=== PATIENT | male | born 1995 | race Caucasian/White ===

== ENCOUNTER 2021-03-29 11:51 | Emergency (ER) | payer MEDICAID ==
[~2021-03-29] VITALS: Ht 182.9 cm; Wt 79.0 kg
[2021-03-29] MEDS ORDERED: CLINDAMYCIN PHOSPHATE 600MG/4ML VIAL IM ONE (13:45)
[2021-03-29] MEDS ORDERED: CLINDAMYCIN 600MG PREMIX 50 ML IV NR (13:45)
[2021-03-29 15:01] LABS: BASOPHILS % 0.5 % (0.0-2.0); HEMATOCRIT. 40.7 % (42.0-52.0); HEMOGLOBIN. 14.1 g/dL (14.0-18.0); LYMPHOCYTES % 28.3 % (20.0-50.0); MEAN CORPUSCULAR HEMOGLOBIN 31.6 pg (28.0-32.0); MEAN CORPUSCULAR VOLUME 91.2 fL (80.0-94.0); MEAN PLATELET VOLUME 7.6 fl (7.4-10.4); MONOCYTES % 8.7 % (2.0-8.0); NEUTROPHILS % 61.5 % (40.0-76.0); PLATELET 166 x1000/uL (130-400); RED BLOOD CELL COUNT 4.46 mill/uL (4.7-6.1)
[2021-03-29 15:08] LABS: CHLORIDE 107 mEq/L (98-107)
[2021-03-29] MEDS ORDERED: CLIN300C12 MT (17:51)
[2021-03-29] MEDS ORDERED: CLINDAMYCIN HCL 150MG CAPSULE PO ONE (18:00)
[2021-03-29 18:59] VITALS: BP 147/89
== END 2021-03-29 19:29 | disposition home or self-care (01) ==
LOC: ER 11:51
DX: N49.3 Fournier gangrene (principal); Z88.0 Allergy status to penicillin; Z98.890 Other specified postprocedural states; Z86.14 Personal history of Methicillin resistant Staphylococcus aureus infection; Z87.898 Personal history of other specified conditions
CPT/HCPCS: 36415; 74176; 76870; 80053; 85025; 93976; 96365; 99285; J3490; Z7610